=== PATIENT | female | born 1930 | race Caucasian/White ===

== ENCOUNTER → 2017-02-06 | Outpatient (CLI) | payer MEDICARE ==
[~2017-02-06] MED LIST: ASPIRIN325 MG PO; PAROXETINE HCL10 MG PO
== END | disposition short-term general hospital (02) ==
LOC: CLRHEU 11:20
DX: R79.82 Elevated C-reactive protein (CRP) (principal); M79.641 Pain in right hand; M79.89 Other specified soft tissue disorders